=== PATIENT | female | born 1950 | race African-American/Black ===

== ENCOUNTER 2017-06-28 06:28 | Emergency (ER) | payer OTHER ==
[~2017-06-28] VITALS: Ht 160 cm; Wt 80.0 kg
[~2017-06-28 06:28] MED LIST: CHOL1TAB6 PO; CYAN1000P IM; NEXI40CA PO
[2017-06-28 06:29] VITALS: BP 146/75; PULSE 77; RESP 15; TEMP 98.3; O2SAT 96
--- NOTE | 2017-06-28 07:06 | RADRPT ---
EXAM DATE/TIME: 06/28/2017 06:46 [facility] COMPARISON: No previous studies available for comparison. INDICATIONS : Joint pain. MEDICAL HISTORY : Arthritis. SURGICAL HISTORY : None. ENCOUNTER: Initial ACUITY: 1 day PAIN SCORE: 10/10 LOCATION: Left knee FINDINGS: No fracture is seen. There is a moderate joint effusion. There is joint space narrowing seen medially . Osteophytes are seen medially and at the patellofemoral compartment. CONCLUSION: Degenerative change and a moderate effusion. Derrick Mitchell MD on June 28, 2017 at 7:03 Board Certified Radiologist. This report was verified electronically.
--- NOTE | 2017-06-28 07:22 | PD ---
HPI Chief Complaint: Injury Time Seen by Provider: 07:05 Travel History International Travel<30 days: No Contact w/Intl Traveler<30days: No Traveled to known affect area: No History of Present Illness HPI 67-year-old otherwise healthy female presents to the emergency room for evaluation of left knee pain and swelling after falling last night. Patient tripped over her dog and fell forward landing with her left knee directly on the tile floor. She denies any twisting injury. She denies hitting her head or loss of consciousness. Pain is worse with ambulation and range of motion. Denies any other injuries. Denies paresthesias. Patient has been taking Tylenol with moderate relief symptoms. She has history of arthritis in the knee. PFSH Past Medical History Blood Disorders: No Cancer: No Cardiovascular Problems: No Diabetes: No Diminished Hearing: No Endocrine: No Gastrointestinal Disorders: Yes (REFLUX) GERD: Yes Genitourinary: No Hepatitis: No Hiatal Hernia: No Immune Disorder: No Implanted Vascular Access Dvce: No Musculoskeletal: No Neurologic: No Psychiatric: No Reproductive: No Respiratory: No Immunizations Current: Yes Thyroid Disease: No PNEUMOCCOCAL Vaccine (Year): 2 Menopausal: Yes : 5 Para: 5 Tubal Ligation: Yes Past Surgical History Abdominal Surgery: Yes (APPEND, BOWEL OBSTR. REPAIR, GASTRIC BY PASS) AICD: No Cardiac Surgery: No Ear Surgery: No Endocrine Surgery: No Eye Surgery: No Genitourinary Surgery: No Gynecologic Surgery: Yes (TUBAL IG.) Joint Replacement: No Oral Surgery: No Pacemaker: No Thoracic Surgery: No Other Surgery: Yes Social History Alcohol Use: Yes (RARELY) Tobacco Use: No Substance Use: No Allergies-Medications (Allergen,Severity, Reaction): Coded Allergies: No Known Allergies (Verified , 06/28/17) Reported Meds & Prescriptions Reported Meds & Active Scripts Active No Active Prescriptions or Reported Medications Review of Systems Except as stated in HPI: all other systems reviewed are Neg Physical Exam Narrative GENERAL: Well-nourished, well-developed female in no acute distress. Afebrile. SKIN: Focused skin assessment warm/dry. Mild ecchymosis to the left lateral knee. HEAD: Normocephalic. EYES: No scleral icterus. No injection or drainage. NECK: Supple, trachea midline. No JVD or lymphadenopathy. CARDIOVASCULAR: Regular rate and rhythm without murmurs, gallops, or rubs. RESPIRATORY: Breath sounds equal bilaterally. No accessory muscle use. MUSCULOSKELETAL: No cyanosis. No obvious edema. 2+ dorsalis pedis pulse. Patient can flex to about 90. Full extension. Tenderness to palpation of the patella. Data Data Last Documented VS Vital Signs Date Time Temp Pulse Resp B/P (MAP) Pulse Ox O2 Delivery O2 Flow Rate FiO2 06/28/17 06:29 98.3 77 15 146/75 (98) 96 Room Air Orders Orders Knee, Complete (4vws) (06/28/17 ) Ice/Cold Pack (06/28/17 06:46) Kishore Bandage (06/28/17 07:16) Ed Discharge Order (06/28/17 07:16) Crutches (06/28/17 07:16) MDM Medical Decision Making Medical Screen Exam Complete: Yes Emergency Medical Condition: Yes Medical Record Reviewed: Yes Differential Diagnosis Sprain, strain, effusion, contusion, fracture Narrative Course 67-year-old otherwise healthy female presents to the emergency room for evaluation of left knee pain after trip and fall last night. Patient landed directly on the tile floor with her left knee. She has been ambulatory but with a limp. Denies any other injuries. Left lower extremity is neurovascularly intact with 2+ dorsalis pedis pulse. She has full range of motion. Mild ecchymosis but no obvious edema. X-ray shows degenerative changes with mild effusion. She was offered crutches to help with balance. Patient was placed in Kishore wrap and told to follow-up with her primary care physician if symptoms persist for outpatient imaging or return for worsening symptoms. She understands and agrees to plan. Diagnosis Primary Impression: Effusion, left knee Referrals: Primary Care Physician Departure Forms: Tests/Procedures, Work Release Enter return to work date: Jul 01, 2017 Additional Instructions: Rest and drink plenty of fluids. Use Kishore wrap and crutches as needed for pain. Take Tylenol or of low dose ibuprofen as directed, as needed for pain. Apply ice to the affected area for 20 minutes at a time, as needed for pain and swelling. Follow-up with a primary care physician. Return to the emergency room for worsening symptoms. Med/Other Pt SpecificInfo: Prescription(s) given Scripts No Active Prescriptions or Reported Meds Disposition: 01 DISCHARGE HOME Condition: Stable Lancaster,Ashely PA Jun 28, 2017 07:22
== END 2017-06-28 08:00 | disposition home or self-care (01) ==
LOC: NEPD 06:28
DX: M25.462 Effusion, left knee (principal)
CPT/HCPCS: 73564; 99283; E0113

== ENCOUNTER → 2017-10-20 | Outpatient (CLI) | payer OTHER ==
[~2017-10-20] MED LIST changes: -CHOL1TAB6 PO; +MULT-65 PO; +NEXI20CA PO; -NEXI40CA PO
[2017-10-20 09:43] LABS: HEMATOCRIT 32.2 % (35.0-46.0); HEMOGLOBIN 10.4 GM/DL (11.6-15.3); MEAN CELL VOLUME 74.4 FL (80.0-100.0); MEAN CORPUSCULAR HGB CONC 32.3 % (32.0-36.0); MEAN PLATELET VOLUME 8.5 FL (7.0-11.0); PLATELET COUNT 297 TH/MM3 (150-450); RED BLOOD COUNT 4.33 MIL/MM3 (4.00-5.30); RED CELL DISTRIBUTION WIDTH 17.1 % (11.6-17.2); WHITE BLOOD COUNT 6.1 TH/MM3 (4.0-11.0)
[2017-10-20 10:09] LABS: BICARBONATE 25.1 MEQ/L (21.0-32.0); CALCIUM 8.8 MG/DL (8.5-10.1); CREATININE 0.74 MG/DL (0.50-1.00)
[2017-10-20 10:20] LABS: PROTHROMBIN TIME - PATIENT 10.1 SEC (9.8-11.6)
[2017-10-20 10:41] LABS: BILIRUBIN, URINE NEG (NEG); BLOOD, URINE NEG (NEG); GLUCOSE,URINE NEG (NEG); KETONE, URINE NEG (NEG); MUCUS URINE FEW /lpf (OCC); NITRITE,URINE NEG (NEG); PH, URINE 5.5 (5.0-8.5); SQUAMOUS EPITHELIAL CELL URINE <1 /hpf (0-5); TRANSITIONAL EPI CELLS, URINE <1 /hpf; URINE COLOR YELLOW (YELLW/STRAW); URINE LEUKOCYTE ESTERASE NEG (NEG)
--- NOTE | 2017-10-21 19:17 | EKG ---
Date Performed: 10/20/2017 Time Performed: 09:45:40 PTAGE: 67 years EKG: Sinus rhythm NORMAL ECG Since the prior tracing, there has been no significant change PREVIOUS TRACING :01/22/2016 @2003 DOCTOR: Clemente Dolan Interpretating Date/Time 10/21/2017 19:29:16
== END ==
LOC: CPRE 09:02
PROVIDERS: ATTEND Orthopaedic Surgery
DX: Z01.810 Encounter for preprocedural cardiovascular examination (principal); Z01.812 Encounter for preprocedural laboratory examination; Z01.818 Encounter for other preprocedural examination; M17.12 Unilateral primary osteoarthritis, left knee; M21.162 Varus deformity, not elsewhere classified, left knee; M79.609 Pain in unspecified limb
CPT/HCPCS: 36415; 80048; 81001; 85027; 85610; 85730; 93005

== ENCOUNTER 2017-11-04 05:10 | Inpatient (IN) | payer OTHER ==
[~2017-11-04] VITALS: Ht 157.5 cm; Wt 84.1 kg
[2017-11-04] MEDS ORDERED: POVIDONE IODINE 5% (ANTISEPSIS KIT) 4 APPLICATIONS EACH NARE PRN (05:30)
[2017-11-04] MEDS ORDERED: LACTATED RINGER'S 1000 ML IV PRN (05:30)
[2017-11-04] MEDS ORDERED: CHLORHEXIDINE GLUCONATE 4% SOLN 120 ML BTL TOPICAL SCH (05:30)
[2017-11-04] MEDS ORDERED: ceFAZolin 2 GM PREMIX 50 ML IV SCH (05:30)
[2017-11-04] MEDS ORDERED: METOPROLOL TARTRATE 25 MG TAB PO PRN (05:30)
[2017-11-04] MEDS ORDERED: CHLORHEXIDINE GLUCONATE 2 % 1 PACK (2 CLOTHS) TOPICAL PRN (05:30)
[2017-11-04] MEDS ORDERED: SODIUM CHLORID 0.9% 500 ML IV PRN (05:30)
[2017-11-04] MEDS ORDERED: EXPAREL PERI-ARTICULAR INJECTION (TOTAL VOL. 100 ML) P-ARTICULR SCH ×2 (06:00)
[2017-11-04] MEDS ORDERED: TRANEXAMIC ACID INJ 841 MG in SODIUM CHLORIDE 0.9% INJ 100 ML IV SCH ×3 (06:00→10:00)
[2017-11-04] MEDS ORDERED: BUPIVACAINE LIPOSOME PF 1.3% 20 ML VIAL ONE (06:21)
[2017-11-04] MEDS ORDERED: ECASA81 PO (06:52)
--- NOTE | 2017-11-04 06:54 | HHI.FF ---
Face to Face Verification Diagnosis: (1) Status post total left knee replacement Physical Therapy Gait training Knee: Total knee, Protocol: Left, Gait training, Full weight bearing Left LE Weight Bearing: WB as tolerated Left LE Range of Motion: Active ROM (AROM, AAROM, PROM. ROM goal is 0 to 130 degrees.) Nursing Nursing: Dressing changes (To begin on postop day 7.) Dressing Changes: Daily dressing change (To begin on postop day 7.), Coverderm/ Primapore Additional Instructions Remove Steri-strips on postop day 14. I have seen patient Shweta Beck [facility] on 11/04/17. My clinical findings support the need for the requested home health care services because: Ltd mobility - disease progression Limited ability to care for self High risk of falls I certify that my clinical findings support that this patient is homebound because: Post-op weakness Unsteady gait/balance Unsafe to leave home unassisted Sfc-[id number]-[id number] bed/chair Guero Flood MD (Charles) Nov 04, 2017 06:54
[2017-11-04] MEDS ORDERED: ACETAMINOPHEN/HYDROcodone 325 MG/7.5 MG TAB PO PRN (07:00)
[2017-11-04] MEDS ORDERED: PANTOPRAZOLE SOD 20 MG DELAYED RELEASE TAB PO PRN (07:00)
[2017-11-04] MEDS ORDERED: MAGNESIUM HYDROXIDE SUSP 30 ML CUP PO PRN (07:00)
[2017-11-04] MEDS ORDERED: ZOLPIDEM TARTRATE 5 MG TAB PO PRN (07:00)
[2017-11-04] MEDS ORDERED: ONDANSETRON HCL 4 MG/2 ML VIAL IVP PRN (07:00)
[2017-11-04] MEDS: MULTIVITAMIN TAB PO SCH (09:00)
[2017-11-04] MEDS ORDERED: CYANOCOBALAMIN 1000 MCG/ML VIAL IM SCH (09:00)
[2017-11-04] MEDS: ASPIRIN EC 81 MG TABEC PO SCH ×2 (09:00→20:35)
--- NOTE | 2017-11-04 09:20 | HHI.PR ---
Immediate Post Op Note Procedure Date: Nov 04, 2017 Pre Op Diagnosis: (1) Primary osteoarthritis of left knee Post Op Diagnosis: (1) Primary osteoarthritis of left knee Surgeon: Jordan Flood M.D. Motor Pool Driver(s): ANGEL Martino Procedure: Left total knee arthroplasty using [place] Triathlon prosthesis (uncemented) Findings: There was severe osteoarthritis in the left knee with exposed subchondral bone in each compartment. There were osteophytes and eburnation. Complications: None Specimen(s) removed: None Estimated blood loss: 150 mL Anesthesia: Regional Block (adductor canal block), Spinal, Local (with Exparel) Drains: Hemovac (2) IVF Tourniquet time (min at mmHg) None Patient to: PACU Patient Condition: Good Implant/Devices: SEE IMPLANT LOG (if applicable) Date/Time of Procedure: SEE SURGICAL CARE RECORD Guero Flood MD (Charles) Nov 04, 2017 09:20
--- NOTE | 2017-11-04 09:25 | PD.OP ---
Operative Report Date of Surgery: Nov 04, 2017 Preoperative Diagnosis: (1) Primary osteoarthritis of left knee Postoperative Diagnosis: (1) Primary osteoarthritis of left knee Procedure: Left total knee arthroplasty using [place] Triathlon prosthesis (uncemented). Anesthesia: Spinal with supplemental adductor canal block and local with Exparel Surgeon: Jordan Flood M.D. Laundry Or Dry Cleaners Counter Clerk(s): ANGEL Martino Operation and Findings: Indications and Findings: This 67-year-old woman has had long-standing and progressive pain in her left knee at least over the past 3 years. Her ambulation tolerance has gone to 1/4 mile because of the pain. She has pain when ascending and the descending inclines, standing from a seated position and vice versa. She has rest pain. Treatment has included anti-inflammatory agents , intra-articular corticosteroids, analgesics, ambulatory aids and physical therapy. These conservative measures have not helped. Physical findings showed medial laxity with crepitation on motion and tenderness on motion. She walks with an antalgic gait. Radiographic findings showed loss of articular cartilage to bone on bone in the medial compartment with large osteophytes in the medial, lateral and patellofemoral compartments. Operative findings: There was severe osteoarthritis in the knee that was tricompartmental in nature but predominantly on the medial and patellofemoral compartments. There was loss of articular cartilage to exposed bone with subchondral sclerosis. There were large osteophytes throughout the knee. The prosthesis used was a [place] Triathlon prosthesis. The femur was a size 4, cruciate retaining, uncemented. The tibial baseplate was a size 4 Tritanium with a 9 mm cruciate retaining, X3 polyethylene spacer. The patella was a size 35 mm asymmetric Tritanium backed. The patient was brought to the clean-air operating suite after an adductor canal block regional had been performed. A spinal anesthetic was administered. The position was supine with a small bolster under the hip on the operative side. A pneumatic tourniquet was applied to the upper thigh. The lower extremity was then prepped with alcohol, Hibiclens and ChloraPrep and draped in the usual manner with the knee draped free. An appropriate timeout procedure was carried out. An incision was made from about 3 fingerbreadths above the superior medial pole of patella down the tibial tubercle on the medial side. The incision was deepened through the subcutaneous tissue to the retinacular structures which were exposed medially and laterally. A medial retinacular incision was then made from the superior middle pole of patella down the tibial tubercle and up into the quadriceps tendon splitting it longitudinally and the medial one third. The patella was reflected. The infrapatellar fat pad was debulked. The anterior cruciate ligament was excised. Medial and lateral meniscectomies were initiated. A fenestration was made in the distal femur for the intramedullary referencing guide. A fenestration was made in the proximal tibia for the intramedullary referencing guide. The distal femoral cutting guide and jig were then assembled for a 5, 8 mm cut. When this was in position, the cutting block was stabilized with pins. The jig was removed. The distal femoral cut was then completed with the oscillating saw. The sizing guide was then positioned in place along [place] line and the epicondylar axis and stabilized with pins. The femoral size was then determined with the sizing guide. The 4-in-1 cutting block was then positioned in place. Anterior and posterior cuts were made followed by posterior and anterior chamfer cuts taking care to prevent injury to ligamentous structures. Osteophytes were then trimmed from the distal femur. A bone plug was then placed into the fenestration of the distal femur. The proximal tibia was then exposed. The medial and lateral meniscectomies were completed. The proximal tibial cutting guide was then positioned in place and stabilized with a pin for rotation. The depth of cut was then verified with a stylus referencing from the predetermined side. The cutting block was stabilized with pins. The jig was removed. The depth of cut was then verified and adjusted appropriately with the use of the spacer block. The proximal tibial cut was then made with the oscillating saw taking care to prevent injury to neurovascular and ligamentous structures. Proximal tibial bone was removed. Local anesthetic was administered with Exparel in the posterior capsule. The tibial baseplate trial was then positioned in place. After verifying the appropriate size, the base plate trial was positioned in place along with its spacer. The trial femoral component was then impacted into place. The alignment was checked. The trial tibial baseplate was then pinned in place on the tibia. Attention was directed to the patella. The patella drill guide was positioned in place for the appropriate sized patella. Patellar drilling was then carried out. The trial patella was positioned in place. The knee was taken through a range of motion which was easily 0 extension to 125 by gravity and 135 with pressure. The patella trial was removed. The femoral drill holes were made. The femoral trial prosthesis was removed. The tibial spacer was removed. A bone plug was placed into the proximal tibia. The tibial punch was impacted through the proximal tibial punch guide. This was all removed followed by placement of the tibial drill guide. The tibial drill holes were then made. The guide was removed. The cut ends of bone were then cleaned with pulse lavage. The tibial baseplate was then impacted into place and seated appropriately. The spacer was inserted. The the femoral component was then impacted into place and seated appropriately. The patella component was then seated with the patellar vice and tightened appropriately. The knee was taken through a range of motion which was comparable to the previous range of motion with excellent stability in flexion and extension and appropriate patellofemoral tracking. The remainder of the Exparel was then injected throughout the knee as a local anesthetic. Drains were brought out the superior lateral aspect of the suprapatellar pouch. Wound closure then commenced using 0 Vicryl interrupted [id number] sutures for the capsular and fascial structures, 2-0 Vicryl interrupted simple sutures with buried knots for the subcutaneous tissues and 4- 0 Monocryl, tenuous subcuticular closure for the skin. The wound was then dressed with Steri-Strips followed by Optifoam silver impregnated dressing. Sterile soft roll with a cooling pad and Kishore bandage from the base of the toes to mid thigh were then applied. Patient was then transferred from the operating room to the recovery room in satisfactory condition having tolerated procedure well. Counts are correct. Specimens: None. Estimated blood loss: 150 mL Guero Flood MD (Charles) Nov 04, 2017 09:25
[2017-11-04] MEDS ORDERED: HYDR-3580 PO (09:27)
[2017-11-04] MEDS ORDERED: MIDAZOLAM HCL 2 MG/2 ML VIAL ONE (09:45)
[2017-11-04] MEDS ORDERED: PROPOFOL 500 MG/50 ML INJ 50 ML ONE (09:47)
[2017-11-04] MEDS ORDERED: Post-op Orders (for Pharmacy) XX ONE (10:00)
[2017-11-04] MEDS: LACTATED RINGER'S 1000 ML INJ 1,000 ML IV SCH ×2 (10:14→20:30)
[2017-11-04] MEDS: KETOROLAC TROMETHAMINE 30 MG/ML (IVP) VIAL IVP SCH ×3 (10:20→20:35)
[2017-11-04] MEDS ORDERED: *ONDANSETRON 4 MG VIAL PERIprocedural Use ONLY ONE (10:21)
[2017-11-04] MEDS ORDERED: *morphine SULFATE 4 MG/ML PERIprocedure ONLY ONE (10:40)
--- NOTE | 2017-11-04 11:31 | RADRPT ---
EXAM DATE/TIME: 11/04/2017 10:12 [facility] COMPARISON: No previous studies available for comparison. INDICATIONS : post op left knee surgery MEDICAL HISTORY : None. SURGICAL HISTORY : None. ENCOUNTER: Initial ACUITY: 1 day PAIN SCORE: 6/10 LOCATION: Left knee FINDINGS: Two view examination of the left knee demonstrates no evidence of fracture or dislocation. Left knee arthroplasty. Postsurgical changes. Drain in place. CONCLUSION: Left knee arthroplasty. Matthew Conway MD on November 04, 2017 at 11:30 Board Certified Radiologist. This report was verified electronically.
[2017-11-04] MEDS ORDERED: PHENYLEPH/NS 1000 MCG/10 ML SYR IV ONE (12:00)
[2017-11-04] MEDS ORDERED: PROPOFOL 200 MG/20 ML AMP IV ONE (12:00)
[2017-11-04] MEDS ORDERED: LACTATED RINGER'S 1000 ML INJ 1,000 ML IV ONE (12:00)
[2017-11-04] MEDS: MORPHINE SULFATE 4 MG/ML INJ IV PUSH PRN ×3 (12:15→18:34)
[2017-11-04] MEDS ORDERED: DO NOT ADM ANY ANTICOAGULANT DRUGS PRN (13:00)
[2017-11-04 16:00] VITALS: BP 116/64; PULSE 69; RESP 18; TEMP 96.2; O2SAT 100
--- NOTE | 2017-11-04 17:44 | PD.CONS ---
[facility] By [facility] Flood Reason for Consult Medical management Primary Care Physician Edward Hughes MD Diagnoses: History of Present Illness The patient is a 67-year-old female with past medical history of osteoarthritis who is presenting to the hospital for elective left knee replacement. The patient says that she has been struggling with arthritis over the years and it has progressed to [id number] disease. She has been having corticosteroid injections which worked temporarily, however, because of a couple of recent falls the pain has been quite unbearable. She has tried working with physical therapy. She only takes Tylenol as needed for her pain. She has had a hard time sleeping at night secondary to the pain. She says she also has arthritis in the right knee but that is not nearly as severe. She denies any diarrhea, constipation or flulike illness. She tolerated the procedure well and was hoping to go home in the next day or 2. Her family was at the bedside. She had no acute complaints at this time. Review of Systems Except as stated in HPI: all other systems reviewed are Neg Past Family Social History Allergies: Coded Allergies: No Known Allergies (Verified Allergy, Unknown, 11/04/17) Past Medical History Osteoarthritis Bowel obstruction Past Surgical History Appendectomy Active Ordered Medications Current Medications Medications (Trade) Dose Ordered Sig/Sandee Route Start Time Stop Time Status Last Admin Lactated Ringer's 1,000 ml @ 30 mls/hr Q24H PRN IV 11/04/17 05:30 11/07/17 05:29 11/04/17 05:45 Sodium Chloride 500 ml @ 30 mls/hr [id number] PRN IV 11/04/17 05:30 11/07/17 05:29 (Lopressor) 25 mg COST CONTROL SUPERVISOR PRN PO 11/04/17 05:30 11/07/17 05:29 (Betadine 5% Antisepsis Kit) 1 applic [employer]ST CONTROL SUPERVISOR PRN EACH NARE 11/04/17 05:30 11/07/17 05:29 11/04/17 05:45 (Chlorhexidine 2% Cloth) 3 pack [employer]ST CONTROL SUPERVISOR PRN TOPICAL 11/04/17 05:30 11/07/17 05:29 11/04/17 05:30 (Hibiclens 4% Top Soln) 1 applic ONCE TOPICAL 11/04/17 05:30 11/07/17 05:29 Cefazolin Sodium/ Dextrose 50 ml @ 100 mls/hr COST CONTROL SUPERVISOR IV 11/04/17 05:30 11/07/17 05:29 11/04/17 07:52 Lactated Ringer's 1,000 ml @ 80 mls/hr [id number] IV 11/04/17 08:00 11/04/17 10:14 Cefazolin Sodium 1000 mg/Sodium Chloride 100 ml @ 200 mls/hr Q6H IV 11/04/17 14:00 11/05/17 02:29 11/04/17 13:53 (Morphine Inj) 4 mg Q3H PRN IV PUSH 11/04/17 07:00 11/04/17 15:34 ([place] 7.5-325 Mg) 1 tab Q4H PRN PO 11/04/17 07:00 ([place] 7.5-325 Mg) 2 tab Q4H PRN PO 11/04/17 07:00 (Toradol Inj) 15 mg Q6H IVP 11/04/17 09:00 11/06/17 03:01 11/04/17 15:40 (Zofran Inj) 4 mg Q6H PRN IVP 11/04/17 07:00 (Colace) 100 mg BID PO 11/05/17 21:00 (Ambien) 5 mg HS PRN PO 11/04/17 07:00 (Milk Of Magnesia Liq) 30 ml DAILY PRN PO 11/04/17 07:00 (Ecotrin Ec) 81 mg BID PO 11/04/17 09:00 (Vitamin B12 Inj) 1,000 mcg Q30D IM 11/04/17 09:00 (Protonix) 20 mg DAILY PRN PO 11/04/17 07:00 (Theragran) 1 tab DAILY PO 11/04/17 09:00 Miscellaneous Information ALL NURSING DEPARTME... UNSCH PRN .XX 11/04/17 13:00 11/05/17 12:59 Family History Breast cancer Prostate cancer Social History The pt does not smoke. She drinks wine rarely. Physical Exam Vital Signs Vital Signs Date Time Temp Pulse Resp B/P (MAP) Pulse Ox O2 Delivery O2 Flow Rate FiO2 11/04/17 11:20 97.7 55 17 122/65 (84) 100 Nasal Cannula 2 11/04/17 11:00 58 13 126/69 (88) 100 Nasal Cannula 2 11/04/17 10:45 52 18 118/69 (85) 100 Nasal Cannula 2 11/04/17 10:30 49 12 128/75 (92) 100 Nasal Cannula 2 11/04/17 10:15 50 17 124/74 (91) 100 Nasal Cannula 2 11/04/17 10:00 52 16 120/70 (87) 100 Nasal Cannula 2 11/04/17 09:52 97.3 56 15 123/65 (84) 100 Nasal Cannula 2 11/04/17 05:52 98.9 69 20 116/67 (83) 100 Physical Exam GENERAL: This is a well-nourished, well-developed patient, in no apparent distress. SKIN: No rashes, ecchymoses or lesions. Cool and dry. HEAD: Atraumatic. Normocephalic. No temporal or scalp tenderness. EYES: Pupils equal round and reactive. Extraocular motions intact. No scleral icterus. No injection or drainage. ENT: Nose without bleeding, purulent drainage or septal hematoma. Throat without erythema, tonsillar hypertrophy or exudate. Uvula midline. Airway patent. NECK: Trachea midline. No JVD or lymphadenopathy. Supple, nontender, no meningeal signs. CARDIOVASCULAR: Regular rate and rhythm without murmurs, gallops, or rubs. RESPIRATORY: Clear to auscultation. Breath sounds equal bilaterally. No wheezes , rales, or rhonchi. GASTROINTESTINAL: Abdomen soft, non-tender, nondistended. No hepato-splenomegaly , or palpable masses. No guarding. MUSCULOSKELETAL: LLE is bandaged and has a drain in place. + pedal pulses. NEUROLOGICAL: Awake and alert. Cranial nerves II through XII intact. Motor and sensory grossly within normal limits. Five out of 5 muscle strength in all muscle groups. Normal speech. PSYCH: Mood and affect appropriate. Assessment and Plan Assessment and Plan Osteoarthritis S/p left knee replacement 11/04/17. She tolerated the procedure well. - wound care, weightbearing and anticoagulation per orthopedic surgery. - PT. - IS. - pain control with a bowel regimen. - antihypertensives as needed. Anemia Recent labs with microcytic anemia. - check CBC in AM. PPx: Per surgery Jose Britt DO Nov 04, 2017 17:42
[2017-11-04 20:00] VITALS: BP 137/67; PULSE 69; RESP 15; TEMP 96.3; O2SAT 96
[2017-11-05] VITALS: BP 102/56; PULSE 89; RESP 15; TEMP 100.5; O2SAT 99
[2017-11-05] MEDS: KETOROLAC TROMETHAMINE 30 MG/ML (IVP) VIAL IVP SCH ×3 (02:20→14:42)
[2017-11-05] MEDS: MORPHINE SULFATE 4 MG/ML INJ IV PUSH PRN (02:51)
[2017-11-05 04:00] VITALS: BP 105/52; PULSE 76; RESP 15; TEMP 100.2; O2SAT 99
[2017-11-05] MEDS: ACETAMINOPHEN/HYDROcodone 325 MG/7.5 MG TAB PO PRN ×3 (06:01→14:17)
[2017-11-05 06:25] LABS: HEMATOCRIT 23.8 % (35.0-46.0); HEMOGLOBIN 8.1 GM/DL (11.6-15.3); MEAN CELL VOLUME 72.3 FL (80.0-100.0); MEAN CORPUSCULAR HEMOGLOBIN 24.7 PG (27.0-34.0); MEAN CORPUSCULAR HGB CONC 34.2 % (32.0-36.0); MEAN PLATELET VOLUME 8.5 FL (7.0-11.0); PLATELET COUNT 252 TH/MM3 (150-450); RED CELL DISTRIBUTION WIDTH 17.5 % (11.6-17.2); WHITE BLOOD COUNT 8.4 TH/MM3 (4.0-11.0)
--- NOTE | 2017-11-05 06:47 | PD.ORT.PN ---
Subjective Post Op Day #: 1 Subjective Remarks She is doing well. She has minimal complaints related to the knee at this time. She did fairly well with walking. Range of Motion 0 extension to 90 of flexion. Distance Walked 45 feet with PT. Objective Vitals Vital Signs Date Time Temp Pulse Resp B/P (MAP) Pulse Ox O2 Delivery O2 Flow Rate FiO2 11/05/17 04:00 100.2 76 15 105/52 (69) 99 11/05/17 00:00 100.5 89 15 102/56 (71) 99 11/04/17 20:00 96.3 69 15 137/67 (90) 96 11/04/17 16:00 96.2 69 18 116/64 (81) 100 11/04/17 11:20 97.7 55 17 122/65 (84) 100 Nasal Cannula 2 11/04/17 11:00 58 13 126/69 (88) 100 Nasal Cannula 2 11/04/17 10:45 52 18 118/69 (85) 100 Nasal Cannula 2 11/04/17 10:30 49 12 128/75 (92) 100 Nasal Cannula 2 11/04/17 10:15 50 17 124/74 (91) 100 Nasal Cannula 2 11/04/17 10:00 52 16 120/70 (87) 100 Nasal Cannula 2 11/04/17 09:52 97.3 56 15 123/65 (84) 100 Nasal Cannula 2 I/O 11/04/17 11/04/17 11/04/17 11/05/17 11/05/17 11/05/17 07:00 15:00 23:00 07:00 15:00 23:00 Intake Total 1603 ml 700 ml Output Total 250 ml 450 ml 10 ml Balance 1353 ml 250 ml -10 ml Intake Oral 700 ml IV Total 203 ml Other 1400 ml Output Urine Total 300 ml Drainage Total 100 ml 150 ml 10 ml Estimated Blood Loss 150 ml # Voids 1 Result Diagram: 11/05/17 0045 Imaging Last 24 hours Impressions Knee X-Ray 11/04/17 0647 Signed Impressions: Service Date/Time: Saturday, November 04, 2017 10:12 - CONCLUSION: Left knee arthroplasty. Matthew Conway MD Objective Remarks She is resting comfortably, supine in bed, in the CPM. The neurovascular status is intact. The dressing is dry and intact. Assessment & Plan Ortho Post Op Day #: 1 Problem List: (1) Primary osteoarthritis of left knee ICD Codes: M17.12 - Unilateral primary osteoarthritis, left knee Status: Resolved (2) Status post total left knee replacement ICD Codes: Z96.652 - Presence of left artificial knee joint Plan: Continue postoperative care and PT. Assessment and Plan Condition: Good. Orthopedically stable. DVT prophylaxis: Sequentials, VALENTIN stockings, aspirin 81 mg twice daily. Discharge plans: Home with home health care. An appointment was scheduled through the office. Prescriptions: [place] 7.5/325 Guero Flood MD (Charles) Nov 05, 2017 06:47
[2017-11-05 06:50] LABS: BICARBONATE 27.7 MEQ/L (21.0-32.0); CALCIUM 8.1 MG/DL (8.5-10.1); CREATININE 0.75 MG/DL (0.50-1.00); MAGNESIUM 1.9 MG/DL (1.5-2.5)
--- NOTE | 2017-11-05 07:10 | HHI.DS ---
Discharge Summary Admission Date Nov 04, 2017 at 05:10 Admitting Diagnosis Primary osteoarthritis, left knee. Diagnosis: (1) Primary osteoarthritis of left knee Diagnosis: Principal ICD Codes: M17.12 - Unilateral primary osteoarthritis, left knee Status: Resolved (2) Status post total left knee replacement Diagnosis: Principal ICD Codes: Z96.652 - Presence of left artificial knee joint Procedures Left total knee arthroplasty with Sanjuana Triathlon prosthesis (uncemented) on . Brief History This is a 67 year old female patient has had ongoing pain in her left knee with progressive worsening limiting her ambulation tolerance. She has not responded to conservative measures as detailed in the history and physical examination. Physical examination showed significant arthritis in the knee with valgus and crepitation on motion. X-rays showed severe osteoarthritis with loss of articular cartilage to bone on bone, eburnation and osteophytes. CBC/BMP: 11/05/17 0045 11/05/17 0454 Significant Findings Laboratory Tests Test 11/05/17 00:45 11/05/17 04:54 Red Blood Count 3.30 MIL/MM3 (4.00-5.30) Hemoglobin 8.1 GM/DL (11.6-15.3) Hematocrit 23.8 % (35.0-46.0) Mean Corpuscular Volume 72.3 FL (80.0-100.0) Mean Corpuscular Hemoglobin 24.7 PG (27.0-34.0) Red Cell Distribution Width 17.5 % (11.6-17.2) Calcium Level 8.1 MG/DL (8.5-10.1) Chloride Level 110 MEQ/L (98-107) Imaging Last 72 hours Impressions Knee X-Ray 11/04/17 0647 Signed Impressions: Service Date/Time: Saturday, November 04, 2017 10:12 - CONCLUSION: Left knee arthroplasty. Matthew Conway MD PE at Discharge She is resting comfortably, supine in bed, in the CPM. The neurovascular status is intact. The dressing is dry and intact. Hospital Course The patient was admitted as noted above. The above noted operative procedure was carried out that day. Preoperatively prophylactic antibiotics were administered Ancef according to protocol. These were continued postoperatively. The patient also received tranexamic acid to help with hemostasis according to protocol. In the postanesthesia care unit a continuous passive motion device was initiated. Also initiated were mechanical methods of DVT prophylaxis in the form of VALENTIN stockings and sequentials. Physical therapy was initiated on the day of surgery. She was able to walk 45 feet and had a range of motion of 0 extension to 90 on the day of surgery. On postoperative day #1 physical therapy continued. The use of the continuous passive motion device continued. DVT prophylaxis with aspirin 81 mg twice daily was initiated at this time. The patient continued physical therapy throughout the hospitalization. The distance walked and range of motion improved throughout the hospitalization. The patient was discharged on postoperative day 1 with the disposition being to home with home health care. An appointment for follow-up was made prior to admission. Pt Condition on Discharge: Good Discharge Disposition: Disch w/ Home Health Serv Discharge Instructions Diet Instructions: As Tolerated, No Restrictions Activities You Can Perform: Full Weight Bearing, Shower Only-No Bath Activities to Avoid: Lifting/Bending, Strenuous Activity, Bathing, Driving Follow up Referrals: Orthopedics with Guero Flood MD ([place]) New Medications: Aspirin (Aspirin DR) 81 Mg Tabdr 81 MG PO BID for Prevent Blood Clot for 30 Days, #60 TAB Hydrocodone/Acetaminophen (Hydrocodone-Acetamin 7.5-325) 7.5 Mg-325 Mg Tablet 1 TAB PO Q4H PRN for PAIN SCALE 1 TO 10, #50 TAB Continued Medications: Cyanocobalamin Inj (Cyanocobalamin Inj) 1,000 Mcg/Ml Inj 1000 MCG IM Q30D, #1 VIAL [address] (Nexium) 20 Mg Capdr 20 MG PO DAILY PRN for REFLUX, CAP 0 Refills Multiple Vitamin (Multi-Vitamin Daily) 1 Tab Tab 1 TAB PO DAILY for Nutritional Supplement, TAB 0 Refills Guero Flood MD ([facility]) Nov 05, 2017 07:10
[2017-11-05] MEDS: LACTATED RINGER'S 1000 ML INJ 1,000 ML IV SCH (07:28)
[2017-11-05 08:00] VITALS: BP 118/57; PULSE 76; RESP 18; TEMP 96.9; O2SAT 93
[2017-11-05] MEDS: MULTIVITAMIN TAB PO SCH (09:16)
[2017-11-05] MEDS: ASPIRIN EC 81 MG TABEC PO SCH (09:16)
--- NOTE | 2017-11-05 11:07 | HHI.PR ---
Subjective Remarks The patient was resting comfortably in bed. She was hoping to go home later on today after working with physical therapy further. She said her pain was well- controlled. She said she always has anemia. She denies any heavy bleeding. Objective Vitals Vital Signs Date Time Temp Pulse Resp B/P (MAP) Pulse Ox O2 Delivery O2 Flow Rate FiO2 11/05/17 10:12 18 11/05/17 08:00 96.9 76 18 118/57 (77) 93 11/05/17 07:05 18 11/05/17 04:00 100.2 76 15 105/52 (69) 99 11/05/17 00:00 100.5 89 15 102/56 (71) 99 11/04/17 20:00 96.3 69 15 137/67 (90) 96 11/04/17 16:00 96.2 69 18 116/64 (81) 100 11/04/17 11:20 97.7 55 17 122/65 (84) 100 Nasal Cannula 2 I/O 11/04/17 11/04/17 11/04/17 11/05/17 11/05/17 11/05/17 07:00 15:00 23:00 07:00 15:00 23:00 Intake Total 1603 ml 700 ml 100 ml Output Total 250 ml 450 ml 10 ml Balance 1353 ml 250 ml 90 ml Intake Oral 700 ml IV Total 203 ml 100 ml Other 1400 ml Output Urine Total 300 ml Drainage Total 100 ml 150 ml 10 ml Estimated Blood Loss 150 ml # Voids 1 Result Diagram: 11/05/17 0045 11/05/17 0454 Imaging Last Impressions Knee X-Ray 11/04/17 0647 Signed Impressions: Service Date/Time: Saturday, November 04, 2017 10:12 - CONCLUSION: Left knee arthroplasty. Matthew Conway MD Objective Remarks GENERAL: This is a well-nourished, well-developed patient, in no apparent distress. SKIN: No rashes, ecchymoses or lesions. Cool and dry. HEAD: Atraumatic. Normocephalic. No temporal or scalp tenderness. EYES: Pupils equal round and reactive. Extraocular motions intact. No scleral icterus. No injection or drainage. ENT: Nose without bleeding, purulent drainage or septal hematoma. Throat without erythema, tonsillar hypertrophy or exudate. Uvula midline. Airway patent. NECK: Trachea midline. No JVD or lymphadenopathy. Supple, nontender, no meningeal signs. CARDIOVASCULAR: Regular rate and rhythm with grade 1 systolic murmur best heard in RUSB. RESPIRATORY: Clear to auscultation. Breath sounds equal bilaterally. No wheezes , rales, or rhonchi. GASTROINTESTINAL: Abdomen soft, non-tender, nondistended. No hepato-splenomegaly , or palpable masses. No guarding. MUSCULOSKELETAL: LLE is bandaged. + pedal pulses. NEUROLOGICAL: Awake and alert. Cranial nerves II through XII intact. Motor and sensory grossly within normal limits. Five out of 5 muscle strength in all muscle groups. Normal speech. PSYCH: Mood and affect appropriate. Procedures Left knee replacement 11/05 Medications and IVs Current Medications Medications (Trade) Dose Ordered Sig/Sandee Route Start Time Stop Time Status Last Admin Lactated Ringer's 1,000 ml @ 30 mls/hr Q24H PRN IV 11/04/17 05:30 11/07/17 05:29 11/04/17 05:45 Sodium Chloride 500 ml @ 30 mls/hr [id number] PRN IV 11/04/17 05:30 11/07/17 05:29 (Lopressor) 25 mg OXYGEN THERAPY TEACHER PRN PO 11/04/17 05:30 11/07/17 05:29 (Betadine 5% Antisepsis Kit) 1 applic OXYGEN THERAPY TEACHER PRN EACH NARE 11/04/17 05:30 11/07/17 05:29 11/04/17 05:45 (Chlorhexidine 2% Cloth) 3 pack OXYGEN THERAPY TE[employer]ER PRN TOPICAL 11/04/17 05:30 11/07/17 05:29 11/04/17 05:30 (Hibiclens 4% Top Soln) 1 applic ONCE TOPICAL 11/04/17 05:30 11/07/17 05:29 Cefazolin Sodium/ Dextrose 50 ml @ 100 mls/hr OXYGEN THERAPY TEACHER IV 11/04/17 05:30 11/07/17 05:29 11/04/17 07:52 Lactated Ringer's 1,000 ml @ 80 mls/hr [id number] IV 11/04/17 08:00 11/04/17 10:14 (Morphine Inj) 4 mg Q3H PRN IV PUSH 11/04/17 07:00 11/05/17 02:51 (Union 7.5-325 Mg) 1 tab Q4H PRN PO 11/04/17 07:00 (Union 7.5-325 Mg) 2 tab Q4H PRN PO 11/04/17 07:00 11/05/17 10:17 (Toradol Inj) 15 mg Q6H IVP 11/04/17 09:00 11/06/17 03:01 11/05/17 09:16 (Zofran Inj) 4 mg Q6H PRN IVP 11/04/17 07:00 (Colace) 100 mg BID PO 11/05/17 21:00 (Ambien) 5 mg HS PRN PO 11/04/17 07:00 (Milk Of Magniris Liq) 30 ml DAILY PRN PO 11/04/17 07:00 (Ecotrin Ec) 81 mg BID PO 11/04/17 09:00 11/05/17 09:16 (Vitamin B12 Inj) 1,000 mcg Q30D IM 11/04/17 09:00 (Protonix) 20 mg DAILY PRN PO 11/04/17 07:00 (Theragran) 1 tab DAILY PO 11/04/17 09:00 11/05/17 09:16 Miscellaneous Information ALL NURSING DEPARTME... UNSCH PRN .XX 11/04/17 13:00 11/05/17 12:59 A/P Assessment and Plan Osteoarthritis S/p left knee replacement 11/04/17. She tolerated the procedure well. - wound care, weightbearing and anticoagulation per orthopedic surgery. - PT. - IS. - pain control with a bowel regimen. - antihypertensives as needed. Anemia Per pt chronic. Has been evaluated as an outpt. - follow CBC and transfuse as needed. - outpt follow-up. PPx: Per surgery Jose Britt DO Nov 05, 2017 11:07
[2017-11-05 12:00] VITALS: BP 115/67; PULSE 74; RESP 18; TEMP 96.6; O2SAT 97
[2017-11-05 15:46] VITALS: RESP 16
[2017-11-05] MEDS ORDERED: DOCUSATE SODIUM 100 MG CAP PO SCH (21:00)
== END 2017-11-05 17:17 | disposition home health service (06) | DRG 470 ==
LOC: HSDI 05:10 → N06A 11:38
PROVIDERS: ADMIT Orthopaedic Surgery; ATTEND Orthopaedic Surgery
PROC: 3E0T3BZ Introduction of Anesthetic Agent into Peripheral Nerves and Plexi, Percutaneous Approach (ICD-10-PCS; 2017-11-04)
PROC: 0SRD0JA Replacement of Left Knee Joint with Synthetic Substitute, Uncemented, Open Approach (ICD-10-PCS; principal; 2017-11-04 06:44)
DX: M17.0 Bilateral primary osteoarthritis of knee (principal); D50.9 Iron deficiency anemia, unspecified; K21.9 Gastro-esophageal reflux disease without esophagitis; M21.062 Valgus deformity, not elsewhere classified, left knee; Z91.81 History of falling; Z98.84 Bariatric surgery status
CPT/HCPCS: 73560; 80048; 83735; 85027; 86850; 86900; 86901; 94150; C1776; C9290; J0690; J1885; J2250; J2270; J2370; J2405; J3010; J7120